=== PATIENT | female | born 1980 | race Caucasian/White ===

== ENCOUNTER 2019-02-28 12:18 | Emergency (ER) | payer OTHER ==
[~2019-02-28] VITALS: Ht 170.2 cm; Wt 77.3 kg
[2019-02-28 12:41] VITALS: Ht 170.2 cm; Wt 77.3 kg
[2019-02-28] MEDS ORDERED: ADIPEX-P37.5 MG PO (12:43)
[2019-02-28] MEDS ORDERED: TRAZODONE HCL150 MG PO (12:43)
[2019-02-28 13:04] LABS: BASOPHILS 0.3 % (0-2); EOSINOPHILS 0.6 % (0-7); HEMATOCRIT 42.4 % (36.0-48.0); HEMOGLOBIN 14.1 g/dL (12-16); IMMATURE GRANULOCYTES 0.2 % (0-5); LYMPHOCYTES 21.8 % (15-50); MCH 29.1 pg (26.0-34.0); MCHC 33.3 g/dL (31.0-37.0); MCV 87.6 fL (80.0-100.0); MONOCYTES 6.5 % (2-11); NEUTROPHILS 70.6 % (40-80); PLATELET COUNT 272 10x3/uL (130-400); RBC 4.84 10x6/uL (4.00-5.40); RDW 13.5 % (11.5-14.5); WBC 9.4 10x3/uL (4.8-10.8)
[2019-02-28 13:13] LABS: CALC OSMOLALITY 280 mosm/kg (275-300); CALCIUM 9.2 mg/dL (8.5-10.1); CARBON DIOXIDE 29.4 mmol/L (21.0-32.0); CHLORIDE - SERUM 103 mmol/L (98-107); CREATININE - SERUM 0.8 mg/dL (0.6-1.3); GLUCOSE 101 mg/dL (74-106); POTASSIUM - SERUM 3.8 mmol/L (3.5-5.1); SODIUM 140 mmol/L (136-145); UREA NITROGEN 17 mg/dL (7-18); eGFR NON AFRICAN AMERICAN 85 mL/min (90-120)
[2019-02-28 13:19] LABS: HCG URINE NEGATIVE (NEGATIVE)
[2019-02-28 13:21] LABS: ALKALINE PHOSPHATASE 65 U/L (46-116); ALT (SGPT) 22 U/L (10-68); AMYLASE - SERUM 81 U/L (25-115); BILIRUBIN - TOTAL 0.35 mg/dL (0.2-1.3); LIPASE 239 U/L (73-393); PROTEIN - SERUM 7.9 g/dL (6.4-8.2)
[2019-02-28 14:03] LABS: APPEARANCE HAZY (CLEAR); BILIRUBIN NEGATIVE (NEGATIVE); COLOR YELLOW (YELLOW); GLUCOSE NEGATIVE (NEGATIVE); KETONE NEGATIVE (NEGATIVE); NITRITE NEGATIVE (NEGATIVE); PROTEIN NEGATIVE (NEGATIVE); SPECIFIC GRAVITY 1.015 (1.005-1.020); UROBILINOGEN NORMAL (NORMAL)
[2019-02-28 14:04] LABS: BACTERIA FEW /hpf (NEGATIVE); EPITHELIAL CELLS OCC /hpf (0-5); MUCUS <1+ /lpf (NONE SEEN); RED CELLS - URINE 0-5 /hpf (0-5); WHITE CELLS - URINE NSEEN /hpf (NEGATIVE)
[2019-02-28] MEDS ORDERED: ULTRAM50 MG PO (14:55)
[2019-02-28 15:30] VITALS: BP 130/72
== END 2019-02-28 15:31 | disposition home or self-care (01) ==
LOC: D.ER 12:18
PROVIDERS: Family Medicine
DX: K59.00 Constipation, unspecified (principal)

== ENCOUNTER 2020-09-04 00:20 | Observation (INO) | payer BC ==
[~2020-09-04] VITALS: Ht 170.2 cm; Wt 79.5 kg
[~2020-09-04 00:20] MED LIST: ADIPEX-P37.5 MG PO; TRAZODONE HCL150 MG PO; ULTRAM50 MG PO
[2020-09-04 00:47] LABS: BASOPHILS 0.3 % (0-2); EOSINOPHILS 0.6 % (0-7); HEMATOCRIT 40.3 % (36.0-48.0); HEMOGLOBIN 13.2 g/dL (12-16); LYMPHOCYTES 14.6 % (15-50); MCH 28.8 pg (26.0-34.0); MCHC 32.8 g/dL (31.0-37.0); MCV 87.7 fL (80.0-100.0); MEAN PLATELET VOLUME 8.4 fL (7.4-10.4); MONOCYTES 6.6 % (2-11); NEUTROPHILS 77.9 % (40-80); PLATELET COUNT 253 10x3/uL (130-400); RDW 14.1 % (11.5-14.5); WBC 11.8 10x3/uL (4.8-10.8)
[2020-09-04 01:00] LABS: CALC OSMOLALITY 280 mosm/kg (275-300); CALCIUM 8.9 mg/dL (8.5-10.1); CHLORIDE - SERUM 104 mmol/L (98-107); CREATININE - SERUM 0.8 mg/dL (0.6-1.3); GLUCOSE 122 mg/dL (74-106); POTASSIUM - SERUM 3.9 mmol/L (3.5-5.1); SODIUM 140 mmol/L (136-145); UREA NITROGEN 15 mg/dL (7-18); eGFR NON AFRICAN AMERICAN 84 mL/min (90-120)
[2020-09-04 01:05] LABS: ALBUMIN 3.8 g/dL (3.4-5.0); ALKALINE PHOSPHATASE 76 U/L (30-120); ALT (SGPT) 24 U/L (10-68); BILIRUBIN - TOTAL 0.35 mg/dL (0.2-1.3); LIPASE 107 U/L (73-393); PROTEIN - SERUM 7.6 g/dL (6.4-8.2)
[2020-09-04 01:06] LABS: HCG URINE NEGATIVE (NEGATIVE)
[2020-09-04 01:11] LABS: BILIRUBIN NEGATIVE (NEGATIVE); KETONE TRACE mg/dL (< 1+); NITRITE NEGATIVE (NEGATIVE); PH 5.5 (5.0-8.0); SQUAMOUS EPITHELIAL 8 HPF (0-4); UROBILINOGEN NORMAL mg/dL (< 2); WHITE CELLS - URINE 2 HPF (0-4)
[2020-09-04 05:05] VITALS: BP 94/56
[2020-09-04 06:35] VITALS: BP 115/64; BMI 27.4
--- NOTE | 2020-09-04 06:41 | NUR ---
RECEIVED PT FROM ER VIA BED, A&O X4. PIV TO RIGHT AC PATENT AND INFUSING, NO REDNESS OR SWELLING. PT ABLE TO AMBULATE AD ELOISA. C/O PREVIOUS PAIN IN ABD, NOW TENDER. C/O CLEAR NASAL DRAINAGE AND CHEST CONGESTION. EDUCATED PT ON CL AND NEEDS, VERBALIZED UNDERSTANDING. BED LOW, CL IN REACH.
--- NOTE | 2020-09-04 07:51 | NUR ---
SPOKE TO PATIENT IN REGARDS TO CONSULT WITH DR CLIFTON. PATIENT STATED SHE HAS A HEAD COLD AND WOULD PREFER TO DO GALLBLADDER SURGERY AN OUTPATIENT, SENT TEXT PAGE TO [facility] WITH PLAN OF CARE
[2020-09-04 09:17] VITALS: BP 110/64
[2020-09-04 09:57] LABS: INR 1.06 (0.85-1.17); PROTIME 12.8 SECONDS (11.6-15.0)
[2020-09-04 10:22] VITALS: Ht 170.2 cm; Wt 79.5 kg
[2020-09-04] MEDS ORDERED: LEVAQUIN750 MG PO (12:11)
[2020-09-04 12:48] VITALS: BP 132/83
--- NOTE | 2020-09-04 16:28 | MORECARE ---
CASE MANAGEMENT DISCHARGE SUMMARY PATIENT: SHANNAN SILVA UNIT: [id number] ADM DATE: 09/04/20 AGE: 40 : 80 SEX: F ROOM/BED: [facility]9 AUTHOR: HARVINDER VALDIVIA PHYSICIAN: REFERRING PHYSICIAN: RICHARD ZAMAN MD DATE OF SERVICE: 09/04/20 Case Management Discharge Planning Summary DCP REVIEW SUMMARY ANTICIPATED D/C DATE: EXPECTED LOS : CASE STATUS: DCP Complete INITIAL REVIEW: 09/04/2020 INITIAL REVIEWER: Annie Elena FINAL DISCHARGE DISPOSITION: : FINAL REVIEWER: FINAL REVIEW DATE: DCP Focus Questions & Answers QUESTION: ANSWER : PATIENT: SHANNAN SILVA ENCOUNTER: [id number] MEDICAL RECORD#: [id number] ADMISSION DATE: 09/04/2020 DISCHARGE DATE: 09/04/2020 ATTENDING MD: RICHARD SANCHEZ : AGE: 40 MARITAL STATUS: M DC PLAN ID: [id number] FACILITY: [facility] PRINTED ON: 09/04/20 16:28 CT All edits/amendments must be made on the electronic document DICTATION DATE: 09/04/201627 PARARESCUE MANAGER: DM 09/04/201627 RPT#: [id number] DC DATE:09/04/20 STATUS: DIS IN [facility] [address] [place] [address] END OF REPORT
== END 2020-09-04 14:48 | disposition home or self-care (01) ==
LOC: D.ER 00:20 → D.EDHOLD 03:41 → OBSVTIME 03:43 → D.MS 04:05
PROVIDERS: Family Medicine; ADMIT Emergency Medicine; ATTEND Emergency Medicine
DX: K80.00 Calculus of gallbladder with acute cholecystitis without obstruction (principal); N83.201 Unspecified ovarian cyst, right side

== ENCOUNTER 2020-09-08 01:31 | Inpatient (IN) | payer BC ==
[~2020-09-08] VITALS: Ht 170.2 cm; Wt 77.3 kg
[~2020-09-08 01:31] MED LIST changes: +LEVAQUIN750 MG PO
[2020-09-08 02:25] LABS: EOSINOPHILS 1.2 % (0-7); HEMOGLOBIN 13.2 g/dL (12-16); LYMPHOCYTES 36.5 % (15-50); MCH 28.5 pg (26.0-34.0); MCHC 32.9 g/dL (31.0-37.0); MCV 86.7 fL (80.0-100.0); MONOCYTES 9.2 % (2-11); NEUTROPHILS 52.1 % (40-80); PLATELET COUNT 256 10x3/uL (130-400); RBC 4.62 10x6/uL (4.00-5.40); RDW 13.9 % (11.5-14.5); WBC 9.1 10x3/uL (4.8-10.8)
[2020-09-08 02:34] LABS: ANION GAP 13.2 mmol/L (8-16); CALCIUM 9.1 mg/dL (8.5-10.1); CARBON DIOXIDE 27.3 mmol/L (21.0-32.0); CREATININE - SERUM 0.9 mg/dL (0.6-1.3); POTASSIUM - SERUM 3.5 mmol/L (3.5-5.1)
[2020-09-08 02:40] LABS: ALBUMIN 3.7 g/dL (3.4-5.0); BILIRUBIN - TOTAL 0.26 mg/dL (0.2-1.3); PROTEIN - SERUM 7.8 g/dL (6.4-8.2)
[2020-09-08 03:12] LABS: APTT 26.9 SECONDS (22.8-39.4); INR 1.11 (0.85-1.17); PROTIME 13.3 SECONDS (11.6-15.0)
[2020-09-08 03:26] VITALS: BP 130/81
[2020-09-08 03:42] VITALS: Ht 170.2 cm; Wt 77.3 kg
--- NOTE | 2020-09-08 07:39 | NUR ---
RESTING IN BED WITH EYES CLOSED, EASILY AROUSED TO SPEECH, AT THE BEDSIDE. IV LOCATED TO LEFT AC CURRENTLY SL. NO CURRENT S/S OF DISTRESS, DENIES CURRENT NEEDS, WILL CONT TO MONITOR.
[2020-09-08 08:58] VITALS: BP 107/73
--- NOTE | 2020-09-08 09:16 | NUR ---
PT HAD NEGATIVE SCREEN 4 DAYS AGO ON 09/04/20, PT STATES THERE IS NO PHYSICAL WAY SHE HAS BECOME IN THAT TIME, STATES HER IS ALSO FIXED.
[2020-09-08] MEDS ORDERED: TYLENOL W/CODEI1 TAB PO (15:46)
--- NOTE | 2020-09-08 19:05 | MORECARE ---
CASE MANAGEMENT DISCHARGE SUMMARY PATIENT: SHANNAN SILVA UNIT: [id number] ADM DATE: 09/08/20 AGE: 40 : 80 SEX: F ROOM/BED: [facility] AUTHOR: HARVINDER VALDIVIA PHYSICIAN: REFERRING PHYSICIAN: SAM JAIN MD DATE OF SERVICE: 09/08/20 Case Management Discharge Planning Summary DCP REVIEW SUMMARY ANTICIPATED D/C DATE: 09/08/2020 EXPECTED LOS : 1 CASE STATUS: DCP Initiated INITIAL REVIEW: 09/08/2020 INITIAL REVIEWER: Zia Marquez FINAL DISCHARGE DISPOSITION: : FINAL REVIEWER: FINAL REVIEW DATE: DCP Focus Questions & Answers QUESTION: ANSWER : PATIENT: SHANNAN SILVA ENCOUNTER: [id number] MEDICAL RECORD#: [id number] ADMISSION DATE: 09/08/2020 DISCHARGE DATE: ATTENDING MD: : AGE: 40 MARITAL STATUS: M DC PLAN ID: [id number] FACILITY: [facility] PRINTED ON: 09/08/20 19:05 CT All edits/amendments must be made on the electronic document DICTATION DATE: 09/08/201904 WARDROBE CUSTODIAN: TREVA 09/08/201904 RPT#: [id number] DC DATE: STATUS: ADM IN [facility] [address] [place] [address] END OF REPORT
--- NOTE | 2020-09-08 19:16 | MORECARE ---
CASE MANAGEMENT DISCHARGE SUMMARY PATIENT: SHANNAN TURK UNIT: [id number] ADM DATE: 09/08/20 AGE: 40 : 80 SEX: F ROOM/BED: D.2216 AUTHOR: HARVINDER VALDIVIA PHYSICIAN: REFERRING PHYSICIAN: SAM JAIN MD DATE OF SERVICE: 09/08/20 Case Management Discharge Planning Summary COMMENTS ENTERED DATE: 09/08/20 19:06 CT COMMENT TYPE: Discharge Planning REVIEWER: Zia Marquez CM met with patient to complete DC plan and to evaluate needs. Patient lives independently with her , Cam Turk, . Patient stated that her home is safe and has electricity and running water. Patient stated that the home has 5 steps to enter and she is able to manage the steps without difficulty. Patient stated that she has no problems paying for medications and she fills her medications at [facility] on [facility]. Patient stated that her primary care physician is Dr. Barroso of [facility]. At discharge, the patient plans to return home and feels this is a safe discharge. CM discussed availability of home health, rehab services, and medical equipment. Patient declined HHS, SNF, IPR, and DME. Patient voiced no other needs at this time and is satisfied with DC plan. Transportation provider at discharge will be with Cam. CM will continue to follow and will assist as needed with dc plans/needs. DCP REVIEW SUMMARY ANTICIPATED D/C DATE: 09/08/2020 EXPECTED LOS : 1 CASE STATUS: DCP Initiated INITIAL REVIEW: 09/08/2020 INITIAL REVIEWER: Zia Marquez FINAL DISCHARGE DISPOSITION: : FINAL REVIEWER: FINAL REVIEW DATE: WAP Focus Questions & Answers DCP Evaluation QUESTION: ANSWER Patient and/or caregiver agree upon recommended discharge plan? : Yes Family / Caregiver's ability to cope with chronic illness: : a. Adequate (ability to meet patient's medical needs, ensures patient attends medical appts.) Patient's current cognitive status: : *Oriented to person, place, situation, time and present Patient's ability to cope with chronic illness : d. No chronic illness Patient gives permission to discuss discharge plans with: (name, relationship and number) : , Cam Turk, Does the patient have the ability to pay for or attain post discharge needs / services? : Yes Functional screen assessment: : Basic needs can adequately be met by self Family / Caregiver's ability to cope with chronic illness: : a. Adequate (ability to meet patient's medical needs, ensures patient attends medical appts.) Physical Status: : Independent with ADL's Equipment needed for post hospitalization: : None Is there a likelihood that the patient will require additional services to return to the preadmission environment? : No Living Arrangements: : Home with Spouse/Significant Other Patient with capacity for self-care or can be cared for in same environment as prior to hospitalization? : Yes Baseline cognitive status: : *Oriented to person, place, situation, time and present Physical environment modification needed / anticipated for discharge: : No Medication Management: : Patient states can read and understand medication labels Medication Management: : Patient states can afford medications Pharmacy name(s): : [facility]. Does Patient have transportation to get home and to follow-up medical appointments when discharged from the hospital? : Yes Would patient like to participate in any Care Coordination programs (if applicable): : Not applicable Does the patient have electricity at home? : Yes Does the patient have running water in their house? : Yes Equipment in use: : None Mental health screen: : No mental health history DCP Re-evaluation QUESTION: ANSWER Would patient like to participate in any Care Coordination programs (if applicable): : Not applicable PATIENT: SHANNAN TURK ENCOUNTER: [id number] MEDICAL RECORD#: [id number] ADMISSION DATE: 09/08/2020 DISCHARGE DATE: ATTENDING MD: QASIM: AGE: 40 MARITAL STATUS: M DC PLAN ID: [id number] FACILITY: [facility] PRINTED ON: 09/08/20 19:16 CT All edits/amendments must be made on the electronic document DICTATION DATE: 09/08/201915 INFLATED PAD BUFFER: TREVA 09/08/201915 RPT#: [id number] DC DATE: STATUS: ADM IN [facility] [address] [place] [address] END OF REPORT
[2020-09-08 20:00] VITALS: BP 116/63
--- NOTE | 2020-09-09 10:27 | NUR ---
PATIENT BEING DC HOME, WENT OVER FOLLOW UP APPOINTMENTS WELL WOUND CARE AND RESTRICTIONS, ALL QUESTIONS ANSWERED, IV DC WITH CATHETER INTACT PATIENT LEFT WITH SPOUSE, DECLINED TO BE TAKEN DOWN BY HOSPITAL STAFF
--- NOTE | 2020-09-09 11:49 | MORECARE ---
CASE MANAGEMENT DISCHARGE SUMMARY PATIENT: SHANNAN TURK UNIT: [id number] ADM DATE: 09/08/20 AGE: 40 : 80 SEX: F ROOM/BED: D.2216 AUTHOR: HARVINDER VALDIVIA PHYSICIAN: REFERRING PHYSICIAN: SAM JAIN MD DATE OF SERVICE: 09/09/20 Case Management Discharge Planning Summary COMMENTS ENTERED DATE: 09/08/20 19:06 CT COMMENT TYPE: Discharge Planning REVIEWER: Zia Marquez CM met with patient to complete DC plan and to evaluate needs. Patient lives independently with her , Cam Turk, . Patient stated that her home is safe and has electricity and running water. Patient stated that the home has 5 steps to enter and she is able to manage the steps without difficulty. Patient stated that she has no problems paying for medications and she fills her medications at [facility] on [facility]. Patient stated that her primary care physician is Dr. Barroso of [facility]. At discharge, the patient plans to return home and feels this is a safe discharge. CM discussed availability of home health, rehab services, and medical equipment. Patient declined HHS, SNF, IPR, and DME. Patient voiced no other needs at this time and is satisfied with DC plan. Transportation provider at discharge will be with Cam. CM will continue to follow and will assist as needed with dc plans/needs. [facility] REVIEW SUMMARY ANTICIPATED D/C DATE: 09/08/2020 EXPECTED LOS : 1 CASE STATUS: DCP Initiated INITIAL REVIEW: 09/08/2020 INITIAL REVIEWER: Zia Marquez FINAL DISCHARGE DISPOSITION: : FINAL REVIEWER: FINAL REVIEW DATE: PAP Focus Questions & Answers PAP Evaluation QUESTION: ANSWER Patient gives permission to discuss discharge plans with: (name, relationship and number) : , Cam Turk, Patient's ability to cope with chronic illness : d. No chronic illness Patient's current cognitive status: : *Oriented to person, place, situation, time and present Family / Caregiver's ability to cope with chronic illness: : a. Adequate (ability to meet patient's medical needs, ensures patient attends medical appts.) Patient and/or caregiver agree upon recommended discharge plan? : Yes Physical Status: : Independent with ADL's Family / Caregiver's ability to cope with chronic illness: : a. Adequate (ability to meet patient's medical needs, ensures patient attends medical appts.) Functional screen assessment: : Basic needs can adequately be met by self Does the patient have the ability to pay for or attain post discharge needs / services? : Yes Living Arrangements: : Home with Spouse/Significant Other Is there a likelihood that the patient will require additional services to return to the preadmission environment? : No Equipment needed for post hospitalization: : None Baseline cognitive status: : *Oriented to person, place, situation, time and present Patient with capacity for self-care or can be cared for in same environment as prior to hospitalization? : Yes Physical environment modification needed / anticipated for discharge: : No Medication Management: : Patient states can afford medications Medication Management: : Patient states can read and understand medication labels Pharmacy name(s): : [facility]. Does Patient have transportation to get home and to follow-up medical appointments when discharged from the hospital? : Yes Would patient like to participate in any Care Coordination programs (if applicable): : Not applicable Does the patient have electricity at home? : Yes Does the patient have running water in their house? : Yes Equipment in use: : None Mental health screen: : No mental health history DCP Re-evaluation QUESTION: ANSWER Would patient like to participate in any Care Coordination programs (if applicable): : Not applicable PATIENT: SHANNAN TURK ENCOUNTER: [id number] MEDICAL RECORD#: [id number] ADMISSION DATE: 09/08/2020 DISCHARGE DATE: 09/09/2020 ATTENDING MD: QASIM: AGE: 40 MARITAL STATUS: M DC PLAN ID: [id number] FACILITY: [facility] PRINTED ON: 09/09/20 11:48 CT All edits/amendments must be made on the electronic document DICTATION DATE: 09/09/20 1148 SERVICE DESK LEAD: TREVA 09/09/20 1148 RPT#: [id number] DC DATE:09/09/20 STATUS: DIS IN [facility] [address] [place] [address] END OF REPORT
== END 2020-09-09 11:41 | disposition home or self-care (01) | DRG 419 ==
LOC: D.ER 01:31 → D.MS 02:36
PROVIDERS: Emergency Medicine; ADMIT Surgery; ATTEND Surgery
PROC: 0FT44ZZ Resection of Gallbladder, Percutaneous Endoscopic Approach (ICD-10-PCS; principal; 2020-09-08 10:00)
DX: K80.12 Calculus of gallbladder with acute and chronic cholecystitis without obstruction (principal); F41.9 Anxiety disorder, unspecified; K59.00 Constipation, unspecified